=== PATIENT | male | born 1980 ===

== ENCOUNTER 2018-01-24 21:00 | Emergency (ER) | payer SELFPAY ==
[2018-01-24 21:00] VITALS: BMI 24.6
[2018-01-24 21:25] VITALS: BP 129/78; PULSE 81; RESP 16; TEMP 98.4; O2SAT 98
[2018-01-24] MEDS ORDERED: Fluorescein 1 mg Ophthalmic Strip OD ONE (21:31)
[2018-01-24] MEDS ORDERED: PROPARACAINE/FLUORESCEIN SOD 100 DROP/5 ML BOTTLE OD STA (21:32)
[2018-01-24] MEDS ORDERED: PROPARACAINE/FLUORESCEIN SOD 100 DROP/5 ML BOTTLE ONE (21:37)
[2018-01-24] MEDS ORDERED: Tobramycin 0.3% OPHT SOLN OD ONE (21:58)
--- NOTE | 2018-01-24 22:03 | ED PDOC ---
HPI: Eye Injury/Pain Time Seen by Provider: 01/24/18 21:29 Chief Complaint (Nursing): Eye Problem Chief Complaint (Provider): Eye Problem History Per: Patient History/Exam Limitations: no limitations Onset/Duration Of Symptoms: Days Additional Complaint(s): 37 year old male presents to the emergency department with a complaint of a foreign body sensation with irritation and pain to the right eye. 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 Denies decrease in vision, fever, contact lens wear, headache. Past Medical History Reviewed: Historical Data, Nursing Documentation, Vital Signs Vital Signs: Last Vital Signs Temp 98.4 F 01/24/18 21:23 Pulse 81 01/24/18 21:23 Resp 16 01/24/18 21:23 BP 129/78 01/24/18 21:23 Pulse Ox 98 01/24/18 21:23 - Medical History PMH: No Chronic Diseases - Surgical History Surgical History: Appendectomy - Family History Family History: States: Unknown Family Hx - Social History Current smoker - smoking cessation education provided: No Alcohol: None Drugs: Denies - Immunization History Hx Tetanus Toxoid Vaccination: No Hx Influenza Vaccination: No Hx Pneumococcal Vaccination: No - Home Medications Home Medications: Ambulatory Orders Medication Instructions Recorded Ibuprofen [Motrin] 600 mg PO TID PRN #20 tab 05/17/15 Tamsulosin HCl [Flomax] 0.4 mg PO DAILY #5 cap 05/17/15 oxyCODONE/Acetaminophen [Percocet 2 tab PO TID PRN #10 tab 05/17/15 5/325 mg Tab] Naproxen [Naprosyn] 500 mg PO BID PRN #15 tablet 11/05/16 Ondansetron ODT [Zofran ODT] 4 mg PO Q8H PRN #20 odt 11/05/16 Ibuprofen [Motrin Tab] 800 mg PO TID PRN #20 tab 01/24/18 Ketorolac Tromethamine [Acular 1 drop OD QID #1 bottle 01/24/18 0.5%] Tobramycin 0.3% [Tobrex 0.3% Ophth 2 drop OD QID #1 bottle 01/24/18 Soln] - Allergies Allergies/Adverse Reactions: Allergies Allergy/AdvReac Type Severity Reaction Status Date / Time No Known Allergies Allergy Verified 01/24/18 21:22 Review of Systems ROS Statement: Except As Marked, All Systems Reviewed And Found Negative (As per HPI, otherwise negative) Eyes: Positive for: Pain (irritation), Redness (Tearing and foreign body sensation). Negative for: Vision Change (decrease in vision) Physical Exam - Reviewed Nursing Documentation Reviewed: Yes Vital Signs Reviewed: Yes - Physical Exam Comments: GENERAL APPEARANCE: Patient is awake, alert, oriented x 3, in no acute distress. HEENT: (-) facial swelling and erythema, (-) facial blisters. LIDS & LASHES: Normal. PUPILS: Pupils round and reactive. EOM's: Intact. LID EVERSION: (-) foreign body. CONJUNCTIVAE: (+) injection with watery discharge. CORNEA: (-) Embedded foreign body noted. ANTERIOR CHAMBER: (-) foreign body, (-) tear in iris, (-) hyphema. FLUORESCEIN: (+) corneal abrasion at 3o'clock to the cornea. - ECG O2 Sat by Pulse Oximetry: 98 (RA) Pulse Ox Interpretation: Normal Medical Decision Making Medical Decision Making: Time: 2157 Initial impression: Eye pain Initial plan: Motrin 800 mg PO Fluorescein Eye drop (once) Tobramycin 0.3% 2 drop OD --Fluorescein eye test shows corneal abrasion at 3 o'clock. --Medically stable for discharge and advised to follow up with referred clinic/ eye doctor in 2 days for re-evaluation. Scribe Attestation: Documented by Amanda Vee, acting as a scribe for Essence Telles PA-C . Provider Scribe Attestation: All medical record entries made by the Scribe were at my direction and personally dictated by me. I have reviewed the chart and agree that the record accurately reflects my personal performance of the history, physical exam, medical decision making, and the department course for this patient. I have also personally directed, reviewed, and agree with the discharge instructions and disposition. Disposition - Clinical Impression Clinical Impression: Corneal abrasion, right - Patient ED Disposition Is Patient to be Admitted: No Counseled Patient/Family Regarding: Diagnosis, Need For Followup, Rx Given - Disposition Referrals: Don Funes MD [Staff Provider] - Disposition: Routine/Home Disposition Time: 22:00 Condition: STABLE Additional Instructions: Thank you for letting us take care of you today. You were treated for corneal abrasion. The emergency medical care you received today was directed at your acute symptoms. If you were prescribed any medication, please fill it and take as directed. It may take several days for your symptoms to resolve. Return to the Emergency Department if your symptoms worsen, do not improve, or if you have any other problems. Please contact your doctor in 2 days for re-evaluation and follow up / or call one of the physicians/clinics you have been referred to that are listed on the Patient Visit Information form that is included in your discharge packet. Bring any paperwork you were given at discharge with you along with any medications you are taking to your follow up visit. Our treatment cannot replace ongoing medical care by a primary care provider (PCP) outside of the emergency department. Thank you for allowing the [facility] team to be part of your care today. 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
== END 2018-01-24 22:47 | disposition home or self-care (01) ==
LOC: H.ER 21:00
DX: S05.01XA Injury of conjunctiva and corneal abrasion without foreign body, right eye, initial encounter (principal); Y92.89 Other specified places as the place of occurrence of the external cause